=== PATIENT | male | born 1995 | race Caucasian/White ===

== ENCOUNTER 2023-06-08 15:01 | Emergency (ER) | payer OTHER ==
[~2023-06-08] VITALS: Ht 172.7 cm; Wt 106.6 kg
[2023-06-08 15:10] VITALS: BP_SYST 155; PULSE 107; RESP 16; TEMP 98.2; O2SAT 99
[2023-06-08 15:51] LABS: BILIRUBIN,URINE NEGATIVE (NEGATIVE); BLOOD, URINE 1+ (NEGATIVE); CLARITY/URINE CLEAR (CLEAR); COLOR,URINE YELLOW (YELLOW); GLUCOSE,URINE NEGATIVE (NEGATIVE); KETONES,URINE TRACE (NEGATIVE); LEUKOCYTE ESTERASE ,URINE NEGATIVE (NEGATIVE); NITRITE, URINE NEGATIVE (NEGATIVE); PROTEIN URINE NEGATIVE (NEGATIVE); UROBILINOGEN,URINE 0.2 (0.2-1.0)
[2023-06-08 16:00] LABS: BACTERIA,URINE None Seen /HPF (None Seen); MUCUS,URINE 2+ /LPF (None Seen); WBC,URINE NONE SEEN /HPF (0-3)
[2023-06-08 16:08] LABS: BASOPHILS % (AUTO) 0.3 % (0.0-2.0); EOSINOPHILS % (AUTO) 0.3 % (0.0-4.0); HEMATOCRIT 46.3 % (36-54); LYMPHOCYTES # (AUTO) 1.7 K/uL (1.0-5.5); LYMPHOCYTES % (AUTO) 24.7 % (20.5-51.5); MEAN CORPUSCULAR HEMOGLOBIN 29 pg (27-31); MEAN CORPUSCULAR HGB CONC 35 % (32-36); MEAN CORPUSCULAR VOLUME 84 fL (79.0-98.0); MONOCYTES # (AUTO) 0.3 K/uL (0.0-1.0); MONOCYTES % (AUTO) 5.2 % (1.7-9.3); NEUTROPHILS # (AUTO) 4.7 K/uL (1.8-7.7); NEUTROPHILS % (AUTO) 69.5 % (40.0-70.0); PLATELET COUNT (AUTO) 230 K/uL (130-430); RED BLOOD CELL COUNT(AUTO) 5.49 MIL/uL (4.2-6.2); RED CELL DISTRIBUTION WIDTH 12.8 % (9.0-15.0); WHITE BLOOD COUNT (AUTO) 6.7 K/uL (4.8-10.8)
[2023-06-08 16:17] LABS: ANION GAP 7 (5-15); CALCIUM 9.2 mg/dL (8.4-11.0); CARBON DIOXIDE 31 mmol/L (23-29); CHLORIDE 105 mmol/L (98-107); CREATININE 1.01 mg/dL (0.55-1.30); GFR AFRICAN AMERICAN 113 mL/min (>90); GLUCOSE 137 mg/dL (74-106); POTASSIUM 3.7 mmol/L (3.5-5.1); SODIUM SERUM 143 mmol/L (136-145); UREA NITROGEN, BLOOD 11 mg/dL (8-21)
[2023-06-08 16:18] LABS: GFR NON AFRICAN-AMERICAN 93 mL/min (>90)
[2023-06-08 16:32] LABS: ALANINE AMINOTRANSFERASE 35 U/L (12-78); ALBUMIN 4.4 g/dL (3.4-4.8); ASPARTATE AMINOTRANSFERASE 15 U/L (10-37); BILIRUBIN,DIRECT 0.2 mg/dL (0.0-0.3); TOTAL BILIRUBIN 0.9 mg/dL (0.0-1.0)
[2023-06-08 17:12] VITALS: BP_SYST 165; PULSE 110; RESP 20; TEMP 98.1; O2SAT 99
== END 2023-06-08 17:14 | disposition home or self-care (01) ==
LOC: SED 15:01
DX: N34.2 Other urethritis (principal); R20.2 Paresthesia of skin; R10.30 Lower abdominal pain, unspecified; Z79.899 Other long term (current) drug therapy
CPT/HCPCS: 36415; 70450-TC; 80048; 80076; 81000; 81001; 81015; 84484; 85025; 99284